=== PATIENT | female | born 1935 | race Caucasian/White ===

== ENCOUNTER 2017-03-10 09:11 | Day surgery (SDC) | payer MEDICARE, BC ==
[~2017-03-10 09:11] MED LIST: ADULT ASPIRIN81 MG PO; ANTACID650 MG PO; APRESOLINE PO; CALCITRIOL0.5 MCG PO; CALCIUM ACETAT667 MG PO; CARAFATE1 G; COREG3.125 M1 PO; COREG6.25 MG PO; EPOGEN; FLEXERIL10 MG; GABAPENTIN400 MG PO; GEMFIBROZIL600 MG PO; GLIPIZIDE XL10 MG; HUMALOG100 UNIT/1 SC; HUMALOG100 UNITS/ SC; HYDRALAZINE HC100 MG PO; HYDROCODON-ACE1 EA16 PO; IMODIUM A-D2 M3 PO; IMODIUM2 MG PO; IRON1 TA1; IRON325 ( 65; IRON325 MG PO; LASIX20 MG; LASIX20 MG PO; LEVEMIR100 U/M; LEVEMIR100 U/M SQ; LEVEMIR100 U/ML SQ; LEVEMIR100 UNITS/ SC; LIPITOR10 M1 PO; LIPITOR10 MG PO; LOPERAMIDE2 M3 PO; LOPID600 MG; LORTAB 5-500 T1 EAC1 PO; LUTEIN20 M2 PO; LUTEIN20 MG PO; MACROBID 100 M100 MG; MULTI-VITAMIN1 TAB; MULTIVITAMIN1 TAB PO; NEURONTIN300 MG; NEURONTIN400 M1 PO; NEXIUM40 MG; NEXIUM40 MG PO; NORCO 5/3251 TA1 PO; NORTRIPTYLINE H10 MG PO; NORVASC10 M1 PO; NORVASC10 MG; NORVASC10 MG PO; NORVASC5 M1 PO; NOVOLOG100 U/M; OMEPRAZOLE40 M2 PO; OXYCONTIN10 MG; PAMELOR10 M2 PO; PAMELOR50 MG; PHOSLO667 M1 PO; PLAVIX75 MG; PRENATAL 19 TA1 EACH PO; PROCRIT20000 U/ML INJ; PROZAC20 M3 PO; PROZAC20 MG PO; ROCALTROL0.5 MC2 PO; SONATA10 MG; TRAZODONE HCL100 M1 PO; TUMS200 MG PO; TYLENOL EXTRA500 M1 PO; TYLENOL EXTRA500 MG; TYLENOL500 MG PO; ULTRAM50 M1 PO; ULTRAM50 MG; ULTRAM50 MG PO; VITAMIN D350000 UNI1 PO; VITAMIN D50000 UNIT PO; ZOFRAN4 M1 PO; ZOFRAN4 M2 PO; ZOLOFT50 M1 PO; [UNRECOGNIZED DRUG - OTHER]
== END 2017-03-10 12:50 ==
LOC: SHSC 09:11
PROC: B51WYZZ Fluoroscopy of Dialysis Shunt/Fistula using Other Contrast (ICD-10-PCS; principal; 2017-03-10)
PROC: 057D3ZZ Dilation of Right Cephalic Vein, Percutaneous Approach (ICD-10-PCS; 2017-03-10)
PROC: 057B3ZZ Dilation of Right Basilic Vein, Percutaneous Approach (ICD-10-PCS; 2017-03-10)
DX: T82.858A Stenosis of other vascular prosthetic devices, implants and grafts, initial encounter (principal); I87.1 Compression of vein; I12.0 Hypertensive chronic kidney disease with stage 5 chronic kidney disease or end stage renal disease; E11.22 Type 2 diabetes mellitus with diabetic chronic kidney disease; N18.6 End stage renal disease; Z79.4 Long term (current) use of insulin; Z79.899 Other long term (current) drug therapy; Z88.1 Allergy status to other antibiotic agents; Z88.2 Allergy status to sulfonamides; Z88.8 Allergy status to other drugs, medicaments and biological substances; Z91.048 Other nonmedicinal substance allergy status; Z87.891 Personal history of nicotine dependence; Z90.49 Acquired absence of other specified parts of digestive tract; Z90.711 Acquired absence of uterus with remaining cervical stump; Z90.89 Acquired absence of other organs; Z98.890 Other specified postprocedural states; Z99.2 Dependence on renal dialysis
CPT/HCPCS: C1725; C1769; C1887; J1644; J2250; J3010; Q9967